=== PATIENT | male | born 1980 | race African-American/Black ===

== ENCOUNTER 2018-03-10 00:09 | Inpatient (IN) | payer MEDICAID ==
[~2018-03-10] VITALS: Ht 175.3 cm; Wt 61.6 kg
[~2018-03-10 00:09] MED LIST: BACL10TA; CLON1TAB3; HYDROCODONE/ACETAMINOPHEN; LEVE500T22 PO; METO10TA3; QUET200T30; SERT-160; TRAZ50TA2
[2018-03-10] MEDS ORDERED: LORazepam 2MG/ML-1ML VIAL IV ONE (00:45)
[2018-03-10] MEDS ORDERED: diphenhdrAMINE HCL 50 MG/1 ML VL IV ONE (00:45)
[2018-03-10 02:30] LABS: Eosinophils # (auto) 0 uL; Lymphocytes # (auto) 1.8 uL; Monocytes # (auto) 0.3 uL; Neutrophils # (auto) 1.7 uL
[2018-03-10 02:32] LABS: Basophils # (auto) 0.1 uL; Basophils % (auto) 1.3 % (0.0-2.0); Eosinophils % (auto) 0.7 % (0.0-7.0); Hematocrit 33.4 % (41.0-53.0); Hemoglobin 10.6 g/dL (13.5-17.5); Lymphocytes % (auto) 46.2 % (10.0-50.0); Mean Corpuscular Hemoglobin 22.5 pg (28.0-32.0); Mean Corpuscular Hgb Conc. 31.7 g/dL (32.0-36.0); Mean Corpuscular Volume 71.2 fL (80.0-100.0); Monocytes % (auto) 7.5 % (0.0-12.0); Neutrophils % (auto) 44.3 % (37.0-80.0); Platelet Count (auto) 185 10^3/uL (140-450); White Blood Cell 3.9 10^3/uL (4.4-10.8)
[2018-03-10 02:40] LABS: INR 0.92 (0.9-1.15); Partial Thromboplastin Time 24.1 sec (22.64-33.71)
[2018-03-10 02:43] LABS: Albumin 4.2 g/dL (3.4-5.0); BUN/Creatinine Ratio 8.2; Calcium 8.9 mg/dL (8.5-10.1); Magnesium 2.1 mg/dL (1.6-2.6); Potassium 3.8 mmol/L (3.5-5.1)
[2018-03-10 02:46] LABS: Bilirubin, Total 0.2 mg/dL (0.2-1.0); Total Protein 7.7 g/dL (6.4-8.2)
[2018-03-10 04:25] LABS: Amphetamine Screen, Urine NEGATIVE (NEGATIVE); Barbiturate Scree,Urine NEGATIVE (NEGATIVE); Benzodiazephine Screen, Urine POSITIVE (NEGATIVE); Cannabinoid Screen, Urine NEGATIVE (NEGATIVE); Cocaine Screen, Urine NEGATIVE (NEGATIVE); Opiate Scree,Urine NEGATIVE (NEGATIVE); Phencyclidine Screen, Urine NEGATIVE (NEGATIVE)
[2018-03-10] MEDS ORDERED: ACETAMINOPHEN 325 MG TAB PO PRN (07:15)
[2018-03-10] MEDS ORDERED: LORazepam 2MG/ML-1ML VIAL IV PRN (07:15)
[2018-03-10] MEDS ORDERED: ONDANSETRON HCL 4 MG/2 ML VIAL IV PRN (07:15)
[2018-03-10] MEDS: SOD CHL 0.45% 1,000 ML IV SCH ×2 (07:15→23:07)
[2018-03-10] MEDS ORDERED: LEVETIRACETAM 500 MG TAB PO SCH (10:00)
[2018-03-10] MEDS: FAMOTIDINE 20 MG TAB PO SCH ×2 (10:30→23:07)
[2018-03-10] MEDS: ENOXAPARIN SOD 40 MG/0.4 ML SYRINGE SC SCH (10:30)
[2018-03-10] MEDS ORDERED: chlordiazePOXIDE HCL 25 MG CAP PO PRN (11:15)
[2018-03-10] MEDS: HYDROcodone-ACET 5/325MG TAB PO PRN ×3 (11:41→23:08)
[2018-03-10] MEDS: THIAMINE INJ 100 MG, MULTIPLE VITAMIN 10 ML, FOLIC ACID 1 MG, MAGNESIUM SULF SDV 50% 8 ... IV SCH ×5 (12:18)
[2018-03-10] MEDS: chlordiazePOXIDE HCL 25 MG CAP PO PRN ×2 (13:36→23:07)
[2018-03-10 13:56] VITALS: BP 132/85
[2018-03-10 14:27] VITALS: BP 132/85
[2018-03-10] MEDS ORDERED: CLON1TAB PO (14:44)
[2018-03-10] MEDS ORDERED: LEVE500T22 PO (14:44)
[2018-03-10] MEDS ORDERED: TRAZ150T79 PO (14:44)
[2018-03-10 16:42] VITALS: BP 146/87
[2018-03-10] MEDS: BOOST PLUS 8 ounce PO SCH (18:04)
[2018-03-10 19:13] LABS: Urine Bacteria FEW /hpf (None Seen); Urine Blood Negative /uL (Negative); Urine Mucus FEW (None Seen); Urine Specific Gravity 1.032 (1.001-1.035); Urine WBC 4 /hpf (0 - 3)
[2018-03-10 21:57] VITALS: BP 132/82
[2018-03-10] MEDS: TEMAZEPAM 15 MG CAP PO PRN (23:08)
[2018-03-10] MEDS: LEVETIRACETAM 500 MG TAB PO SCH (23:08)
[2018-03-11 05:00] VITALS: BP 117/86
[2018-03-11 07:37] LABS: Albumin 3.4 g/dL (3.4-5.0); Bilirubin, Total 0.7 mg/dL (0.2-1.0); Calcium 8.6 mg/dL (8.5-10.1); Potassium 3.5 mmol/L (3.5-5.1); Total Protein 6.3 g/dL (6.4-8.2)
[2018-03-11 07:43] LABS: Basophils # (auto) 0 uL; Eosinophils # (auto) 0.1 uL; Hemoglobin 9.7 g/dL (13.5-17.5); Lymphocytes # (auto) 1.4 uL; Mean Corpuscular Hemoglobin 22.1 pg (28.0-32.0); Monocytes # (auto) 0.3 uL; Neutrophils # (auto) 1.1 uL; Nucleated Red Blood Cells % 0.1 %
[2018-03-11 07:46] LABS: Basophils % (auto) 0.8 % (0.0-2.0); Eosinophils % (auto) 1.8 % (0.0-7.0); Hematocrit 31.5 % (41.0-53.0); Lymphocytes % (auto) 49.4 % (10.0-50.0); Mean Corpuscular Hgb Conc. 30.9 g/dL (32.0-36.0); Mean Corpuscular Volume 71.5 fL (80.0-100.0); Monocytes % (auto) 10.4 % (0.0-12.0); Neutrophils % (auto) 37.6 % (37.0-80.0); Platelet Count (auto) 146 10^3/uL (140-450); Red Blood Cells 4.41 10^6/uL (4.5-5.90); White Blood Cell 2.9 10^3/uL (4.4-10.8)
[2018-03-11] MEDS: BOOST PLUS 8 ounce PO SCH ×2 (08:00→18:00)
[2018-03-11 08:20] LABS: Red Cell Distribution Width 22.5 % (11.8-14.3)
[2018-03-11 09:00] VITALS: BP 130/87
[2018-03-11] MEDS: LEVETIRACETAM 500 MG TAB PO SCH (10:40)
[2018-03-11] MEDS: ENOXAPARIN SOD 40 MG/0.4 ML SYRINGE SC SCH (10:40)
[2018-03-11] MEDS: FAMOTIDINE 20 MG TAB PO SCH ×2 (10:40→22:56)
[2018-03-11] MEDS: chlordiazePOXIDE HCL 25 MG CAP PO SCH ×2 (10:41→22:55)
[2018-03-11] MEDS: THIAMINE INJ 100 MG, MULTIPLE VITAMIN 10 ML, FOLIC ACID 1 MG, MAGNESIUM SULF SDV 50% 8 ... IV SCH ×5 (12:42)
[2018-03-11 13:00] VITALS: BP 136/84
[2018-03-11] MEDS: SOD CHL 0.45% 1,000 ML IV SCH (14:03)
[2018-03-11] MEDS: diphenhdrAMINE HCL 25 MG CAP PO PRN (14:54)
[2018-03-11 17:00] VITALS: BP 130/81
[2018-03-11 21:51] VITALS: BP 142/86
[2018-03-11] MEDS: TEMAZEPAM 15 MG CAP PO PRN (22:55)
[2018-03-12 05:00] VITALS: BP 117/75
[2018-03-12 06:56] LABS: Basophils # (auto) 0 uL; Eosinophils # (auto) 0.1 uL; Hemoglobin 10.5 g/dL (13.5-17.5); Lymphocytes # (auto) 1.2 uL; Neutrophils # (auto) 1.6 uL; Nucleated Red Blood Cells % 0.3 %
[2018-03-12 07:01] LABS: Basophils % (auto) 0.6 % (0.0-2.0); Eosinophils % (auto) 2.8 % (0.0-7.0); Hematocrit 33.9 % (41.0-53.0); Lymphocytes % (auto) 37.3 % (10.0-50.0); Mean Corpuscular Hemoglobin 22.3 pg (28.0-32.0); Monocytes # (auto) 0.3 uL; Monocytes % (auto) 10.3 % (0.0-12.0); Platelet Count (auto) 142 10^3/uL (140-450); Red Blood Cells 4.71 10^6/uL (4.5-5.90); White Blood Cell 3.2 10^3/uL (4.4-10.8)
[2018-03-12 07:08] LABS: BUN/Creatinine Ratio 11.5; Calcium 8.9 mg/dL (8.5-10.1); Potassium 3.4 mmol/L (3.5-5.1)
[2018-03-12] MEDS: SOD CHL 0.45% 1,000 ML IV SCH (07:10)
[2018-03-12 07:20] LABS: Red Cell Distribution Width 22.9 % (11.8-14.3)
[2018-03-12] MEDS ORDERED: POTASSIUM CHL 20 Meq TABLET PO ONE (07:30)
[2018-03-12] MEDS: BOOST PLUS 8 ounce PO SCH ×2 (08:00→17:54)
[2018-03-12 09:00] VITALS: BP 137/90
[2018-03-12] MEDS: ENOXAPARIN SOD 40 MG/0.4 ML SYRINGE SC SCH (09:42)
[2018-03-12] MEDS: FAMOTIDINE 20 MG TAB PO SCH ×2 (09:42→21:53)
[2018-03-12] MEDS: chlordiazePOXIDE HCL 25 MG CAP PO SCH ×3 (09:42→21:53)
[2018-03-12] MEDS: THIAMINE INJ 100 MG, MULTIPLE VITAMIN 10 ML, FOLIC ACID 1 MG, MAGNESIUM SULF SDV 50% 8 ... IV SCH ×5 (12:00)
[2018-03-12 13:00] VITALS: BP 105/63
[2018-03-12] MEDS: PROMETHAZINE HCL 25 MG/ML 1ML IV PRN (13:52)
[2018-03-12 17:00] VITALS: BP 118/76
[2018-03-12] MEDS: TEMAZEPAM 15 MG CAP PO PRN (21:53)
[2018-03-12] MEDS: HYDROcodone-ACET 5/325MG TAB PO PRN (21:53)
[2018-03-12 22:00] VITALS: BP 126/83
[2018-03-13] MEDS: diphenhdrAMINE HCL 25 MG CAP PO PRN ×2 (00:40→21:59)
[2018-03-13] MEDS: SOD CHL 0.45% 1,000 ML IV SCH ×2 (00:57→12:36)
[2018-03-13 05:00] VITALS: BP 130/78
[2018-03-13] MEDS: chlordiazePOXIDE HCL 25 MG CAP PO SCH ×2 (06:25→21:58)
[2018-03-13 06:26] LABS: Basophils # (auto) 0 uL; Eosinophils # (auto) 0.1 uL; Lymphocytes # (auto) 1.4 uL; Monocytes # (auto) 0.4 uL; Neutrophils # (auto) 1.5 uL; White Blood Cell 3.4 10^3/uL (4.4-10.8)
[2018-03-13 06:30] LABS: Basophils % (auto) 0.4 % (0.0-2.0); Eosinophils % (auto) 3.1 % (0.0-7.0); Hematocrit 34.1 % (41.0-53.0); Hemoglobin 10.7 g/dL (13.5-17.5); Lymphocytes % (auto) 41.3 % (10.0-50.0); Mean Corpuscular Hemoglobin 22.8 pg (28.0-32.0); Mean Corpuscular Hgb Conc. 31.2 g/dL (32.0-36.0); Monocytes % (auto) 11.9 % (0.0-12.0); Neutrophils % (auto) 43.3 % (37.0-80.0); Nucleated Red Blood Cells % 0.1 %; Platelet Count (auto) 133 10^3/uL (140-450); Red Blood Cells 4.67 10^6/uL (4.5-5.90)
[2018-03-13 06:45] LABS: Red Cell Distribution Width 23.4 % (11.8-14.3)
[2018-03-13 06:46] LABS: BUN/Creatinine Ratio 12.3; Calcium 8.7 mg/dL (8.5-10.1); Potassium 3.8 mmol/L (3.5-5.1)
[2018-03-13 09:00] VITALS: BP 117/78
[2018-03-13] MEDS: BOOST PLUS 8 ounce PO SCH ×2 (09:00→17:45)
[2018-03-13] MEDS: HYDROcodone-ACET 5/325MG TAB PO PRN (09:00)
[2018-03-13] MEDS: FAMOTIDINE 20 MG TAB PO SCH ×2 (10:52→21:58)
[2018-03-13] MEDS: ENOXAPARIN SOD 40 MG/0.4 ML SYRINGE SC SCH (10:53)
[2018-03-13] MEDS: PROMETHAZINE HCL 25 MG/ML 1ML IV PRN ×2 (11:51→17:46)
[2018-03-13 13:15] VITALS: BP 128/73
[2018-03-13] MEDS: THIAMINE INJ 100 MG, MULTIPLE VITAMIN 10 ML, FOLIC ACID 1 MG, MAGNESIUM SULF SDV 50% 8 ... IV SCH ×5 (14:37)
[2018-03-13 17:00] VITALS: BP 107/68
[2018-03-13 21:30] VITALS: BP 118/70
[2018-03-13] MEDS: TEMAZEPAM 15 MG CAP PO PRN (23:08)
[2018-03-14] MEDS: HYDROcodone-ACET 5/325MG TAB PO PRN ×3 (02:01→18:04)
[2018-03-14] MEDS: SOD CHL 0.45% 1,000 ML IV SCH (03:39)
[2018-03-14 05:00] VITALS: BP 110/67
[2018-03-14 07:54] LABS: Basophils # (auto) 0 uL; Eosinophils # (auto) 0.1 uL; Hemoglobin 10.6 g/dL (13.5-17.5); Lymphocytes # (auto) 1.6 uL; Nucleated Red Blood Cells % 0.2 %
[2018-03-14 07:58] LABS: Basophils % (auto) 0.6 % (0.0-2.0); Eosinophils % (auto) 2.3 % (0.0-7.0); Hematocrit 36.4 % (41.0-53.0); Lymphocytes % (auto) 47.1 % (10.0-50.0); Mean Corpuscular Hemoglobin 22.1 pg (28.0-32.0); Mean Corpuscular Hgb Conc. 29.3 g/dL (32.0-36.0); Mean Corpuscular Volume 75.5 fL (80.0-100.0); Monocytes # (auto) 0.5 uL; Monocytes % (auto) 14.5 % (0.0-12.0); Neutrophils # (auto) 1.2 uL; Neutrophils % (auto) 35.5 % (37.0-80.0); Platelet Count (auto) 129 10^3/uL (140-450); Red Blood Cells 4.82 10^6/uL (4.5-5.90); White Blood Cell 3.5 10^3/uL (4.4-10.8)
[2018-03-14 08:02] LABS: Red Cell Distribution Width 23.7 % (11.8-14.3)
[2018-03-14 08:09] LABS: Calcium 8.7 mg/dL (8.5-10.1); Potassium 3.9 mmol/L (3.5-5.1)
[2018-03-14 09:00] VITALS: BP 94/56
[2018-03-14] MEDS: PROMETHAZINE HCL 25 MG/ML 1ML IV PRN (09:03)
[2018-03-14] MEDS: ENOXAPARIN SOD 40 MG/0.4 ML SYRINGE SC SCH (09:03)
[2018-03-14] MEDS: FAMOTIDINE 20 MG TAB PO SCH (09:04)
[2018-03-14] MEDS: BOOST PLUS 8 ounce PO SCH ×2 (09:04→18:04)
[2018-03-14] MEDS: chlordiazePOXIDE HCL 25 MG CAP PO SCH (11:36)
[2018-03-14 13:00] VITALS: BP 97/60
[2018-03-14] MEDS: THIAMINE INJ 100 MG, MULTIPLE VITAMIN 10 ML, FOLIC ACID 1 MG, MAGNESIUM SULF SDV 50% 8 ... IV SCH ×5 (13:22)
[2018-03-14 17:00] VITALS: BP 121/66
== END 2018-03-14 19:43 | disposition home or self-care (01) | DRG 53 ==
LOC: EDBD 00:09 → ER 00:12 → MERGE 00:13 → OVERFLOW 00:13 → EAST 13:16
PROVIDERS: ADMIT Nurse Practitioner; ATTEND Internal Medicine Pulmonary Disease
DX: G40.401 Other generalized epilepsy and epileptic syndromes, not intractable, with status epilepticus (principal); F10.221 Alcohol dependence with intoxication delirium; E87.0 Hyperosmolality and hypernatremia; E87.1 Hypo-osmolality and hyponatremia; F10.231 Alcohol dependence with withdrawal delirium; I10 Essential (primary) hypertension; F12.90 Cannabis use, unspecified, uncomplicated; F17.210 Nicotine dependence, cigarettes, uncomplicated; F90.9 Attention-deficit hyperactivity disorder, unspecified type; L20.9 Atopic dermatitis, unspecified; Z79.899 Other long term (current) drug therapy; Z59.0 Homelessness; Z82.49 Family history of ischemic heart disease and other diseases of the circulatory system; Z91.19 Patient's noncompliance with other medical treatment and regimen
CPT/HCPCS: 36415; 70450; 71045; 80048; 80053; 80307; 80320; 81001; 82550; 82962; 83735; 85025; 85610; 85730; 93005; 93306; 94761; 95819; 96374; 96375

== ENCOUNTER 2018-05-07 21:25 | Emergency (ER) | payer MEDICAID ==
[~2018-05-07] VITALS: Ht 175.3 cm; Wt 69.9 kg
[~2018-05-07 21:25] MED LIST changes: +CLON1TAB PO; -CLON1TAB3; +CLON1TAB4; +TRAZ150T79 PO
[2018-05-07] MEDS ORDERED: diphenhdrAMINE HCL 50 MG/1 ML VL IV ONE (22:15)
[2018-05-07] MEDS ORDERED: ONDANSETRON HCL 4 MG/2 ML VIAL ONE (22:26)
[2018-05-07 22:44] LABS: Hemoglobin 11.1 g/dL (13.5-17.5); Red Blood Cells 4.76 10^6/uL (4.5-5.90); White Blood Cell 2.9 10^3/uL (4.4-10.8)
[2018-05-07 22:45] LABS: Hematocrit 34.8 % (41.0-53.0); Mean Corpuscular Hemoglobin 23.3 pg (28.0-32.0); Mean Corpuscular Hgb Conc. 31.8 g/dL (32.0-36.0); Mean Corpuscular Volume 73.2 fL (80.0-100.0); Platelet Count (auto) 132 10^3/uL (140-450)
[2018-05-07 22:47] LABS: Red Cell Distribution Width 26.1 % (11.8-14.3)
[2018-05-07 22:48] LABS: Band Neutrophils % (manual) 0; Basophils % (manual) 0 (0.0-2.0); Blast Cells 0; Metamyelocytes % 0; Myelocytes % 0; Promyelocytes % 0; Reactive Lymphocytes 0
[2018-05-07 23:10] LABS: Magnesium 2.2 mg/dL (1.6-2.6)
[2018-05-07 23:19] LABS: Eosinophils % (manual) 3 (0-7); Lymphocytes % (manual) 46 (10.0-50.0); Monocytes % (manual) 5 (0-12)
[2018-05-07] MEDS ORDERED: ONDANSETRON HCL 4 MG/2 ML VIAL IV ONE (23:45)
[2018-05-08] MEDS ORDERED: THIAMINE INJ 100 MG, MULTIPLE VITAMIN 10 ML, FOLIC ACID 1 MG, MAGNESIUM SULF SDV 50% 8 ... IV STA ×5 (01:29)
[2018-05-08 05:01] VITALS: BP 102/50
[2018-05-08] MEDS ORDERED: THIAMINE INJ 100 MG, MULTIPLE VITAMIN 10 ML, FOLIC ACID 1 MG, MAGNESIUM SULF SDV 50% 8 ... IV SCH ×5 (12:00)
== END 2018-05-08 05:18 | disposition home or self-care (01) ==
LOC: ER 21:25 → EDBD 21:25 → ER 05-08 05:18
DX: F10.129 Alcohol abuse with intoxication, unspecified (principal); R41.82 Altered mental status, unspecified; F17.210 Nicotine dependence, cigarettes, uncomplicated; Z88.1 Allergy status to other antibiotic agents; Z88.6 Allergy status to analgesic agent; Z88.8 Allergy status to other drugs, medicaments and biological substances; Y90.8 Blood alcohol level of 240 mg/100 ml or more
CPT/HCPCS: 36415; 71045; 80320; 82962; 83735; 84484; 85007; 85027; 94761; 96365; 96366; 96375; 99285; J1200; J2405; J3411; J3475; J7030; 93005

== ENCOUNTER 2019-03-07 13:51 | Emergency (ER) | payer MEDICAID ==
[~2019-03-07] VITALS: Ht 165.1 cm; Wt 68.0 kg
[2019-03-07 14:07] VITALS: BP 137/79
[2019-03-07 14:45] LABS: Basophils # (auto) 0 uL; Eosinophils # (auto) 0 uL; Monocytes # (auto) 0.2 uL; White Blood Cell 2.4 10^3/uL (4.4-10.8)
[2019-03-07 14:51] LABS: Eosinophils % (auto) 0.6 % (0.0-7.0); Hematocrit 32.6 % (41.0-53.0); Lymphocytes # (auto) 0.8 uL; Mean Corpuscular Hemoglobin 21.9 pg (28.0-32.0); Mean Corpuscular Hgb Conc. 30.8 g/dL (32.0-36.0); Mean Corpuscular Volume 71.1 fL (80.0-100.0); Monocytes % (auto) 10.4 % (0.0-12.0); Neutrophils # (auto) 1.3 uL; Nucleated Red Blood Cells % 0.2 %; Platelet Count (auto) 203 10^3/uL (140-450); Red Blood Cells 4.59 10^6/uL (4.5-5.90)
[2019-03-07 14:52] LABS: Red Cell Distribution Width 25.6 % (11.8-14.3)
[2019-03-07 15:04] LABS: Albumin 3.9 g/dL (3.4-5.0); Calcium 8.7 mg/dL (8.5-10.1); Potassium 3.5 mmol/L (3.5-5.1)
[2019-03-07 15:08] LABS: Bilirubin, Total 0.2 mg/dL (0.2-1.0); Total Protein 7.9 g/dL (6.4-8.2)
[2019-03-07] MEDS ORDERED: diphenhdrAMINE HCL 50 MG/1 ML VL ONE (16:10)
[2019-03-07] MEDS ORDERED: SODIUM CHLORIDE 0.9% 1,000 ML IV ONE (16:15)
[2019-03-07] MEDS ORDERED: diphenhdrAMINE HCL 50 MG/1 ML VL IV ONE (16:15)
== END 2019-03-07 23:11 | disposition left against medical advice (07) ==
LOC: EDBD 13:51 → ER 13:57
DX: T78.40XA Allergy, unspecified, initial encounter (principal); X58.XXXA Exposure to other specified factors, initial encounter; Z53.21 Procedure and treatment not carried out due to patient leaving prior to being seen by health care provider
CPT/HCPCS: 36415; 80053; 85025; 99281; J1200; J7030

== ENCOUNTER 2019-03-18 20:54 | Inpatient (IN) | payer MEDICAID | END 2019-03-24 14:00 | disposition home or self-care (01) | LOC: OVERFLOW 03-19 03:54 → EAST 03-20 08:45 → WEST WING 03-19 15:00 → ER 20:54 | DX: K85.90 Acute pancreatitis without necrosis or infection, unspecified (principal); G92 Toxic encephalopathy; R56.9 Unspecified convulsions; F20.9 Schizophrenia, unspecified; F10.920 Alcohol use, unspecified with intoxication, uncomplicated ==

== ENCOUNTER 2019-03-26 19:20 | Emergency (ER) | payer MEDICAID ==
[~2019-03-26] VITALS: Ht 162.6 cm; Wt 54.4 kg
[2019-03-26] MEDS ORDERED: diphenhdrAMINE HCL 50 MG/1 ML VL IV ONE (19:45)
[2019-03-26] MEDS ORDERED: methylPREDNISolone SOD SUCC 125 MG/2 ML VL IV ONE (19:45)
[2019-03-26] MEDS ORDERED: LORazepam 2MG/ML-1ML VIAL IV ONE (19:45)
[2019-03-26] MEDS ORDERED: SODIUM CHLORIDE 0.9% 1,000 ML IVB ONE (20:40)
[2019-03-27 01:54] LABS: Amphetamine Screen, Urine NEGATIVE (NEGATIVE); Barbiturate Scree,Urine NEGATIVE (NEGATIVE); Benzodiazephine Screen, Urine POSITIVE (NEGATIVE); Cannabinoid Screen, Urine NEGATIVE (NEGATIVE); Cocaine Screen, Urine NEGATIVE (NEGATIVE); Opiate Scree,Urine NEGATIVE (NEGATIVE); Phencyclidine Screen, Urine NEGATIVE (NEGATIVE)
[2019-03-27 02:35] VITALS: BP 105/70
== END 2019-03-27 02:49 | disposition home or self-care (01) ==
LOC: EDBD 19:20 → ER 19:34
DX: T78.40XA Allergy, unspecified, initial encounter (principal); F17.210 Nicotine dependence, cigarettes, uncomplicated; F12.10 Cannabis abuse, uncomplicated; Z88.1 Allergy status to other antibiotic agents; Z88.6 Allergy status to analgesic agent; Z88.8 Allergy status to other drugs, medicaments and biological substances; X58.XXXA Exposure to other specified factors, initial encounter
CPT/HCPCS: 80307; 93005; 94761; 96374; 96375; 99284; J1200; J2060; J2930; J7030

== ENCOUNTER 2019-03-30 23:26 | Emergency (ER) | payer MEDICAID ==
[~2019-03-30] VITALS: Ht 177.8 cm; Wt 77.1 kg
[2019-03-31] MEDS ORDERED: diphenhdrAMINE HCL 25 MG CAP PO ONE
[2019-03-31 00:39] LABS: Hematocrit 36.5 % (41.0-53.0); Hemoglobin 11.4 g/dL (13.5-17.5); Mean Corpuscular Hemoglobin 21.5 pg (28.0-32.0); Mean Corpuscular Hgb Conc. 31.2 g/dL (32.0-36.0); Mean Corpuscular Volume 68.9 fL (80.0-100.0); Platelet Count (auto) 310 10^3/uL (140-450)
[2019-03-31 00:42] LABS: Basophils % (manual) 0 (0.0-2.0); Blast Cells 0; Metamyelocytes % 0; Myelocytes % 0; Promyelocytes % 0; Reactive Lymphocytes 0; Red Cell Distribution Width 24.4 % (11.8-14.3)
[2019-03-31 00:56] LABS: Alanine Aminotransferase 35 U/L (16-61); Albumin 4.1 g/dL (3.4-5.0); Anion Gap 12 (5-15); Aspartate Aminotransferase 32 U/L (15-37); BUN/Creatinine Ratio 6.9; Blood Urea Nitrogen 6 mg/dL (7-18); Calcium 8.8 mg/dL (8.5-10.1); Carbon Dioxide 24 mmol/L (21-32); Chloride 110 mmol/L (98-107); GFR African American 124 mL/min; GFR Non-African American 103 mL/min; Glucose 93 mg/dL (74-106); Potassium 4.1 mmol/L (3.5-5.1); Salicylate < 1.7 mg/dL (2.8-20.0); Sodium 146 mmol/L (136-145)
[2019-03-31 01:02] LABS: Acetaminophen < 2.0 ug/mL (10-30)
[2019-03-31 01:05] LABS: Alkaline Phosphatase 67 U/L (45-117); Bilirubin, Total 0.2 mg/dL (0.2-1.0)
[2019-03-31 01:06] LABS: Total Protein 8.6 g/dL (6.4-8.2)
[2019-03-31 01:26] LABS: Band Neutrophils % (manual) 2; Eosinophils % (manual) 1 (0-7); Lymphocytes % (manual) 42 (10.0-50.0); Monocytes % (manual) 3 (0-12)
[2019-03-31 01:38] LABS: Blood Alcohol 330.9 mg/dL (0-5)
[2019-03-31] MEDS ORDERED: ACETAMINOPHEN 500 MG TAB PO ONE (04:00)
[2019-03-31 07:22] VITALS: BP 132/82
[2019-03-31] MEDS ORDERED: LEVETIRACETAM 500 MG TAB PO ONE (08:45)
[2019-03-31 08:53] LABS: Urine Bacteria NONE SEEN /hpf (None Seen); Urine Blood Negative /uL (Negative); Urine Mucus FEW (None Seen); Urine Specific Gravity 1.029 (1.001-1.035); Urine WBC 2 /hpf (0 - 3)
[2019-03-31 09:42] LABS: Amphetamine Screen, Urine NEGATIVE (NEGATIVE); Barbiturate Scree,Urine NEGATIVE (NEGATIVE); Benzodiazephine Screen, Urine POSITIVE (NEGATIVE); Cannabinoid Screen, Urine NEGATIVE (NEGATIVE); Cocaine Screen, Urine NEGATIVE (NEGATIVE); Opiate Scree,Urine NEGATIVE (NEGATIVE); Phencyclidine Screen, Urine NEGATIVE (NEGATIVE)
== END 2019-03-31 12:41 | disposition home or self-care (01) ==
LOC: EDBD 23:26 → ER 23:31
DX: F10.920 Alcohol use, unspecified with intoxication, uncomplicated (principal); G40.909 Epilepsy, unspecified, not intractable, without status epilepticus; D50.9 Iron deficiency anemia, unspecified; F17.210 Nicotine dependence, cigarettes, uncomplicated; F12.10 Cannabis abuse, uncomplicated; Y90.0 Blood alcohol level of less than 20 mg/100 ml; Z88.6 Allergy status to analgesic agent; Z88.1 Allergy status to other antibiotic agents
CPT/HCPCS: 36415; 80053; 80307; 80320; 80329; 81001; 85007; 85027; 99284; J7030

== ENCOUNTER 2019-05-03 22:16 | Emergency (ER) | payer MEDICAID ==
[~2019-05-03] VITALS: Ht 167.6 cm; Wt 65.8 kg
[2019-05-03] MEDS ORDERED: SODIUM CHLORIDE 0.9% 500 ML IV ONE (22:43)
[2019-05-03] MEDS ORDERED: FAMOTIDINE 20 MG TAB PO ONE (22:45)
[2019-05-03] MEDS ORDERED: methylPREDNISolone SOD SUCC 125 MG/2 ML VL IV ONE (22:45)
[2019-05-03] MEDS ORDERED: ONDANSETRON HCL 4 MG/2 ML VIAL IV ONE (23:15)
[2019-05-03] MEDS ORDERED: SODIUM CHLORIDE 0.9% 1,000 ML IV ONE (23:15)
[2019-05-03] MEDS ORDERED: MORPHINE SULF INJ 2 MG/ML SYRINGE 1ML IV ONE (23:15)
[2019-05-03 23:53] LABS: Hematocrit 33.5 % (41.0-53.0); Hemoglobin 10.3 g/dL (13.5-17.5); Mean Corpuscular Hgb Conc. 30.9 g/dL (32.0-36.0)
[2019-05-03 23:55] LABS: Mean Corpuscular Hemoglobin 21.8 pg (28.0-32.0); Mean Corpuscular Volume 70.5 fL (80.0-100.0); Platelet Count (auto) 148 10^3/uL (140-450); Red Blood Cells 4.75 10^6/uL (4.5-5.90); White Blood Cell 3.7 10^3/uL (4.4-10.8)
[2019-05-03 23:59] LABS: Red Cell Distribution Width 25.9 % (11.8-14.3)
[2019-05-04] LABS: Band Neutrophils % (manual) 0; Basophils % (manual) 0 (0.0-2.0); Blast Cells 0; Metamyelocytes % 0; Myelocytes % 0; Promyelocytes % 0; Reactive Lymphocytes 0
[2019-05-04 00:11] LABS: Albumin 4.2 g/dL (3.4-5.0); Anion Gap 15 (5-15); Calcium 8.4 mg/dL (8.5-10.1); Carbon Dioxide 20 mmol/L (21-32); Chloride 108 mmol/L (98-107); Glucose 92 mg/dL (74-106); Lipase 510 U/L (73-393); Potassium 3.8 mmol/L (3.5-5.1); Sodium 143 mmol/L (136-145)
[2019-05-04 00:13] LABS: Alanine Aminotransferase 39 U/L (16-61); Aspartate Aminotransferase 48 U/L (15-37); GFR African American 120 mL/min; GFR Non-African American 99 mL/min
[2019-05-04 00:17] LABS: Eosinophils % (manual) 1 (0-7); Lymphocytes % (manual) 42 (10.0-50.0); Monocytes % (manual) 6 (0-12)
[2019-05-04 00:21] LABS: Alkaline Phosphatase 59 U/L (45-117); Bilirubin, Total 0.2 mg/dL (0.2-1.0); Total Protein 8.2 g/dL (6.4-8.2)
[2019-05-04 00:24] LABS: BUN/Creatinine Ratio 7.8; Blood Urea Nitrogen 7 mg/dL (7-18)
[2019-05-04] MEDS ORDERED: SODIUM CHLORIDE 0.9% 500 ML IV ONE (01:23)
[2019-05-04] MEDS ORDERED: MORPHINE SULF INJ 2 MG/ML SYRINGE 1ML IV ONE (01:30)
[2019-05-04 01:56] LABS: Urine Bacteria NONE SEEN /hpf (None Seen); Urine Blood 1+ /uL (Negative); Urine Hyaline Cast FEW /lpf (0 - 2); Urine Mucus FEW (None Seen); Urine Specific Gravity 1.018 (1.001-1.035); Urine WBC 3 /hpf (0 - 3)
[2019-05-04] MEDS ORDERED: SODIUM CHLORIDE 0.9% 1,000 ML IV ONE (03:00)
[2019-05-04 08:00] VITALS: BP 119/73
== END 2019-05-04 09:00 | disposition home or self-care (01) ==
LOC: ER 22:16 → EDBD 22:16 → ER 05-04 09:00
DX: L50.9 Urticaria, unspecified (principal); R10.13 Epigastric pain; F10.20 Alcohol dependence, uncomplicated; F17.210 Nicotine dependence, cigarettes, uncomplicated; F12.90 Cannabis use, unspecified, uncomplicated; Z88.6 Allergy status to analgesic agent; Z88.8 Allergy status to other drugs, medicaments and biological substances; Z79.899 Other long term (current) drug therapy; Z90.49 Acquired absence of other specified parts of digestive tract
CPT/HCPCS: 36415; 71045; 74176; 80053; 80320; 81001; 83690; 84484; 85007; 85027; 94761; 96361; 96374; 96375; 96376; 99284; J2270; J2405; J2930; J7030; J7040

== ENCOUNTER 2024-04-19 01:58 | Emergency (ER) | payer MEDICAID ==
[~2024-04-19] VITALS: Ht 167.6 cm; Wt 75.0 kg
[~2024-04-19 01:58] MED LIST changes: +CLON-1004 PO; +CLON-853; -CLON1TAB PO; -CLON1TAB4; -LEVE500T22 PO; +LEVE500T40 PO; +TRAZ-227; -TRAZ150T79 PO; +TRAZ1TAB12 PO; -TRAZ50TA2
[2024-04-19] MEDS: ONDANSETRON ODT 4 MG TAB PO ONE (04:15)
[2024-04-19] MEDS: MORPHINE SULFATE INJ 2 MG/ml SYRG IM ONE (04:18)
[2024-04-19 04:19] VITALS: O2SAT 94
[2024-04-19 04:43] LABS: Urine Bacteria FEW /hpf (None Seen); Urine Blood Negative /uL (Negative); Urine Clarity Clear (Clear); Urine Color Yellow (Yellow); Urine Mucus FEW (None Seen); Urine Protein, UAD Negative (Negative); Urine Specific Gravity 1.027 (1.001-1.035); Urine Urobilinogen Normal (Negative); Urine WBC 1 /hpf (0 - 3); Urine pH 5.5 (5.0-9.0)
[2024-04-19 04:48] VITALS: BP 121/74; PULSE 98; RESP 18
== END 2024-04-19 05:48 | disposition home or self-care (01) ==
LOC: ER 01:58 → EDBD 01:58 → ER 05:48
DX: M16.0 Bilateral primary osteoarthritis of hip (principal); M87.88 Other osteonecrosis, other site; N50.812 Left testicular pain; N50.811 Right testicular pain; F17.210 Nicotine dependence, cigarettes, uncomplicated; F15.90 Other stimulant use, unspecified, uncomplicated; Z87.81 Personal history of (healed) traumatic fracture; Z98.890 Other specified postprocedural states; Z88.8 Allergy status to other drugs, medicaments and biological substances; Z79.899 Other long term (current) drug therapy
CPT/HCPCS: 72170; 72192; 76870; 81001; 96372; 99285; J2270; Q0162